=== PATIENT | female | born 1955 | race Caucasian/White ===

== ENCOUNTER 2019-08-28 07:31 | Observation (INO) | payer BC ==
[2019-08-22 12:22] LABS: BASOPHILS # (AUTO) 0.1 X10'3 (0-0.2); BASOPHILS % (AUTO) 1.2 % (0-1); EOSINOPHILS # (AUTO) 0.2 X10'3 (0-0.9); EOSINOPHILS % (AUTO) 1.6 % (0-6); LYMPHOCYTES # (AUTO) 3.6 X10'3 (1.1-4.8); LYMPHOCYTES % (AUTO) 35.1 % (21-51); MEAN CORPUSCULAR HEMOGLOBIN 24.5 PG (27.0-31.0); MEAN CORPUSCULAR HGB CONC 32.4 g/dL (33.0-36.5); MEAN CORPUSCULAR VOLUME 75.7 FL (78-98); MEAN PLATELET VOLUME 9.5 FL (7.4-10.4); MONOCYTES # (AUTO) 0.8 X10'3 (0-0.9); MONOCYTES % (AUTO) 7.8 % (2-12); NEUTROPHILS # (AUTO) 5.5 X10'3 (1.8-7.7); NEUTROPHILS % (AUTO) 54.3 % (42-75); PRE OP HEMATOCRIT 33.7 % (35.0-45.0); PRE OP PLATELET COUNT 252 X10'3 (140-440); RED BLOOD COUNT 4.45 X10'6 (4.20-5.60); RED CELL DISTRIBUTION WIDTH 15.2 % (11.5-14.5)
[2019-08-22 12:24] LABS: PRE OP HEMOGLOBIN 10.9 g/dL (12.0-16.0)
[2019-08-22 12:24] LABS: CLARITY,URINE CLEAR (Clear); COLOR,URINE YELLOW (Yellow); GLUCOSE, URINE NEGATIVE (Neg); KETONES,URINE NEGATIVE (Neg); LEUKOCYTE ESTERASE ,URINE TRACE (Neg); NITRITES, URINE NEGATIVE (Neg); OCCULT BLOOD,URINE NEGATIVE (Neg); PROTEIN,URINE NEGATIVE (Neg); UROBILINOGEN,URINE 0.2 E.U/dL (0.2-1.0)
[2019-08-22 12:26] LABS: UA COLLECTION TYPE NON-SPECIFIED
[2019-08-22 12:29] LABS: BACTERIA,URINE NONE SEEN /HPF (Neg); MUCUS STRANDS FEW /LPF (Neg); RBC,URINE NONE SEEN /HPF (0-2); SQUAMOUS EPITHELIAL CELL,UR FEW /LPF (FEW); WBC,URINE NONE SEEN /HPF (0-4)
[2019-08-22 12:32] LABS: PRE OP PROTIME 9.9 SECONDS (9.0-12.0)
[2019-08-22 12:41] LABS: ALBUMIN 3.6 G/DL (3.4-5.0); ALBUMIN/GLOBULIN RATIO 1.2 (1.1-1.5); ALKALINE PHOSPHATASE 94 IU/L (46-116); BLOOD UREA NITROGEN 21 MG/DL (7-18); BUN/CREATININE RATIO 17.2 (6.6-38.0); CHLORIDE 104 MMOL/L (99-107); CREATININE 1.22 MG/DL (0.40-0.90); PRE OP ALT 22 U/L (30-65); PRE OP ANION GAP 13 (8-16); PRE OP AST 12 U/L (10-37); PRE OP BILIRUB, TOTAL 0.2 MG/DL (0.0-1.0); PRE OP GLUCOSE 151 MG/DL (70-104); PRE OP POTASSIUM 4.5 MMOL/L (3.4-5.1); PRE OP SODIUM 140 MMOL/L (135-145); TOTAL CARBON DIOXIDE 22.9 MMOL/L (24-32); TOTAL PROTEIN 6.7 G/DL (6.4-8.2); eGFR 44 ML/MIN
[2019-08-28] VITALS (18 sets, daily range): BP systolic 139–177; BP diastolic 73–100
[~2019-08-28] VITALS: Ht 162.6 cm; Wt 84.9 kg
[~2019-08-28 07:31] MED LIST: ASCO500C15 PO; BUPIVAcaine/PF 2.5 mg/ml (0.25%) 30ml vial ONE; DOCUMENT DATE & TIME OF BETA-BLOCKER PO ONE; K2 PO; LABE100T5 PO; LACT1CAP65 PO; LEVO75TA PO; MAGN400C PO; METF500T PO; POTA-82 PO; QUIN10TA16 PO; VITA-268 PO; ceFAZolin 1000mg inj ONE; clindamycin-Cleocin 900mg/D5W 50 ML IV ONE; famotidine 20mg tablet PO ONE; ringers solution, lacted 1,000 ML IV SCH
[2019-08-28] MEDS ORDERED: ringers solution, lacted 1,000 ML IV SCH (08:21)
[2019-08-28] MEDS ORDERED: morphine 2 MG/ML inj. syringe IV PRN (08:25)
[2019-08-28] MEDS ORDERED: ondansetron/PF 4mg/2ml inj IV PRN (08:25)
[2019-08-28] MEDS ORDERED: meperidine/PF 25mg/ml syringe IV PRN ×2 (08:25)
[2019-08-28] MEDS ORDERED: proCHLORperazine 10 MG/2 ml inj IV PRN (08:25)
[2019-08-28] MEDS ORDERED: insulin regular, human U-100 3ml vial - multi-dose SQ ONE (08:55)
[2019-08-28] MEDS ORDERED: midazolam 2 mg/2 ml injection ONE (09:54)
[2019-08-28] MEDS ORDERED: fentaNYL /PF 50mcg/ml 5ml ampule ONE (09:54)
[2019-08-28] MEDS ORDERED: clindamycin phosphate 150mg/ml inj. ONE (10:02)
[2019-08-28] MEDS ORDERED: gentamicin 40 MG/1 ML inj ONE (10:02)
[2019-08-28] MEDS ORDERED: sevoflurane 250ml liquid IH ONE (10:22)
[2019-08-28] MEDS ORDERED: glycopyrrolate 0.2mg/ml inj ONE (10:22)
[2019-08-28] MEDS ORDERED: neostigmine methylsulfate 1 MG/ML 10ml vial ONE (10:22)
[2019-08-28] MEDS ORDERED: dexamethasone sod phosphate 10mg/ml inj ONE (10:22)
[2019-08-28] MEDS ORDERED: ceFAZolin 1000mg inj ONE (10:24)
[2019-08-28] MEDS ORDERED: ondansetron/PF 4mg/2ml inj ONE (10:34)
[2019-08-28] MEDS ORDERED: acetaminophen 1,000mg/100ml IV 100 ML IV ONE (10:47)
[2019-08-28] MEDS ORDERED: LIDOcaine 2% (20mg/ml) 5ml vial ONE (10:48)
[2019-08-28] MEDS ORDERED: propofol inj 20 ML IV ONE (10:48)
[2019-08-28] MEDS ORDERED: rocuronium 10mg/ml inj IV ONE (10:49)
--- NOTE | 2019-08-28 12:03 | NUR ---
Received from OR via [facility] , accompanied by Anesthesiologist CHRISTAL and report given by Anesthesiolgist. PATIENT WITH 5 ABDOMINAL BANDAIDS PRESENT AND CDI. VSS. 10L MASK ON WITH 100% SATURATIONS. 20G PIV IN LEFT UE MARCELLA OLIVERA AT 100. DENIES PAIN AT THIS TIME. Addendum: 08/28/19 at 1218 by Riley Walker RN, RN Amended: Links added.
[2019-08-28] MEDS: labetalol 20mg/4ml (5mg/ml) syringe IV PRN ×2 (12:25→13:08)
[2019-08-28] MEDS: meperidine/PF 25mg/ml syringe IV PRN ×2 (12:37→12:55)
[2019-08-28] MEDS: morphine 4 MG/ML inj SYRINge IV PRN ×2 (12:43→13:11)
--- NOTE | 2019-08-28 13:36 | NUR ---
ALL CRITERIA FOR DC TO THE FLOOR HAS BEEN ACHIEVED. 2 RAILS UP. BED LOW, CALL LIGHT PRESENT. GAVE REPORT TO RODRIGO VELAZQUEZ . PAIN AT A TOLERABLE LEVEL AT THIS TIME. DRESSINGS CDI. CARE TURNED OVER TO RN. PASSIVELY TRANSFERED PATIENT TO BED FROM [facility] WITH SLIDER AND 2 PERSON ASSIST. PATIENT C.O. MORE ABDOMEN PAIN UPON TRANSFER OVER TO BED. RN PRESENT TO ACCEPT CARE AND ASSIST WITH TRANSFER. Addendum: 08/28/19 at 1344 by Riley Green - RODRIGO WALLACE Amended: Links added.
--- NOTE | 2019-08-28 13:48 | NUR ---
Patient in room . I have received report from Riley WALLACE and had the opportunity to ask questions and assume patient care.
[2019-08-28] MEDS: potassium CL 20mEq in D5-1/2NS 1,000 ML IV SCH ×2 (14:37→20:14)
[2019-08-28] MEDS: HYDROcodone/acetaminophen 10/325mg tab PO PRN ×2 (14:42→23:22)
[2019-08-28] MEDS: ondansetron/PF 4mg/2ml inj IV PRN (14:45)
--- NOTE | 2019-08-28 17:15 | NUR ---
patient c/o pain. onl;y norco prescribed. call made to Dr benjamin who is in surgery. OR charge nurse emño stated she will contact him as soon as she can.
--- NOTE | 2019-08-28 17:21 | NUR ---
OR called to give order for dilaudid.
[2019-08-28] MEDS: HYDROmorphone 1 mg/ml syringe IV PRN (17:31)
[2019-08-28] MEDS ORDERED: vancomycin/NS 1 GM ADD-VANTAGE 250 ML IV SCH (18:00)
--- NOTE | 2019-08-28 18:30 | NUR ---
Dr Alanis into see patient, daughter present. order for zofran given for nausea not relieved by Zofran. Report given to Ben WALLACE
[2019-08-28] MEDS: metoclopramide 5 mg/ml inj IV PRN (18:41)
[2019-08-28] MEDS: labetalol 100mg tablet PO SCH (20:21)
[2019-08-28] MEDS: metFORMIN 500mg tablet PO SCH (20:22)
[2019-08-29] VITALS: BP 117/64
[2019-08-29] MEDS: potassium CL 20mEq in D5-1/2NS 1,000 ML IV SCH ×2 (00:38→12:14)
[2019-08-29] MEDS: ondansetron/PF 4mg/2ml inj IV PRN (04:42)
--- NOTE | 2019-08-29 05:12 | NUR ---
pt ambulated 300'
[2019-08-29 05:21] LABS: BASOPHILS % (AUTO) 0.2 % (0-1); EOSINOPHILS % (AUTO) 0 % (0-6); HEMATOCRIT 29.4 % (35.0-45.0); HEMOGLOBIN 9.4 g/dl (12.0-16.0); LYMPHOCYTES # (AUTO) 1.5 X10'3 (1.1-4.8); LYMPHOCYTES % (AUTO) 8.7 % (21-51); MEAN CORPUSCULAR HEMOGLOBIN 24.8 PG (27.0-31.0); MEAN CORPUSCULAR HGB CONC 32.1 g/dL (33.0-36.5); MEAN CORPUSCULAR VOLUME 77.3 FL (78-98); MEAN PLATELET VOLUME 9.3 FL (7.4-10.4); MONOCYTES # (AUTO) 1.3 X10'3 (0-0.9); MONOCYTES % (AUTO) 7.4 % (2-12); NEUTROPHILS # (AUTO) 14.2 X10'3 (1.8-7.7); NEUTROPHILS % (AUTO) 83.7 % (42-75); PLATELET COUNT 220 X10'3 (140-440); RED BLOOD COUNT 3.81 X10'6 (4.20-5.60); RED CELL DISTRIBUTION WIDTH 15.2 % (11.5-14.5)
[2019-08-29 05:22] LABS: ALBUMIN 2.9 G/DL (3.4-5.0); ANION GAP 9 (8-16); BLOOD UREA NITROGEN 24 MG/DL (7-18); BUN/CREATININE RATIO 14.8 (6.6-38.0); CALCIUM 7.8 MG/DL (8.5-10.1); CHLORIDE 103 MMOL/L (99-107); CREATININE 1.62 MG/DL (0.40-0.90); GLUCOSE 305 MG/DL (70-104); POTASSIUM 5.5 MMOL/L (3.5-5.1); SODIUM 134 MMOL/L (135-145); eGFR 32 ML/MIN
--- NOTE | 2019-08-29 06:59 | NUR ---
Patient in room [facility]. I have received report from Ben WALLACE and had the opportunity to ask questions and assume patient care.
[2019-08-29 07:00] VITALS: BP 117/56
--- NOTE | 2019-08-29 07:06 | NUR ---
Patient in room [facility]. I have received report from Kamryn and had the opportunity to ask questions and assume patient care.
[2019-08-29] MEDS: lactobacillus rhamnosus 10,000 MMU CELLS/CAPSULE PO SCH (07:33)
[2019-08-29] MEDS: lisinopril 20mg tablet PO SCH (07:35)
[2019-08-29] MEDS: ascorbic acid 500mg tablet PO SCH (07:37)
[2019-08-29] MEDS: metFORMIN 500mg tablet PO SCH (07:37)
[2019-08-29] MEDS: levoTHYROXINE 75mcg tablet PO SCH (07:39)
[2019-08-29] MEDS: vitamin B comp w/Vit. C tab 1 TAB TABLET PO SCH (08:00)
[2019-08-29] MEDS ORDERED: [UNRECOGNIZED DRUG - MIXTURE] PO SCH (08:00)
[2019-08-29] MEDS ORDERED: levoTHYROXINE 75mcg tablet PO SCH (08:00)
[2019-08-29] MEDS ORDERED: POTASSIUM CHLORIDE 99 MG PO SCH (08:00)
[2019-08-29] MEDS: HYDROmorphone 1 mg/ml syringe IV PRN ×2 (09:29→14:47)
[2019-08-29 11:00] VITALS: BP 117/56
[2019-08-29] MEDS: HYDROcodone/acetaminophen 10/325mg tab PO PRN ×2 (11:49→20:41)
--- NOTE | 2019-08-29 12:00 | NUR ---
patient k 5.5 and blood sugar 259 fluids stopped . call made to Dr benjamin, awaiting orders.
[2019-08-29] MEDS ORDERED: dextrose ORAL solution 15 GM/59 ML bottle PO PRN ×2 (14:10)
[2019-08-29] MEDS ORDERED: glucagon, human recombinant 1mg kit SUBCUT PRN (14:10)
[2019-08-29] MEDS ORDERED: MESSAGE TO PHARMACY PO ONE (14:10)
[2019-08-29] MEDS ORDERED: dextrose 50%-water 50ml dispensing syringe IV PRN ×2 (14:10)
[2019-08-29] MEDS: metoclopramide 5 mg/ml inj IV PRN (15:03)
--- NOTE | 2019-08-29 15:12 | NUR ---
Pt with A1c 8.0% seen at bedside with family present for written and verbal DM education. Pt states she takes her DM meds per rx however hasn't been seeing an MD or checking her BG levels. Per pt and family member patient's A1c is usually well controlled and in the 5.0 range. Pt believes current increase in A1c is r/t recent increased intake of sugary items such as desserts. RD encouraged pt to monitor BG levels more frequently and practice consistent carb intake to prevent spikes in blood sugar. Pt verbalized understanding. Pt s/p hernia repair with mesh, reports a low appetite since surgery. Pt currently on a clear liquid diet documented with 50% PO intake x [address] encouraged increased protein intake with diet advancement given recent surgery. Pt denies food allergies or difficulty chewing/swallowing. RD contact information provided. Will remain available. Addendum: 08/29/19 at [address] Amended: Links added.
--- NOTE | 2019-08-29 15:42 | NUR ---
Student Medication Administration: For this medication-pass time frame, all medication were reviewed, dispensed, administered and documented per hospital policy by matt Turner.
--- NOTE | 2019-08-29 15:42 | NUR ---
Student documentation: I have reviewed and agree with all interventions, assessments performed and documented by Yue, nursing project coordinator.
--- NOTE | 2019-08-29 15:46 | NUR ---
Student documentation: I have reviewed and agree with all interventions, assessments performed and documented by Nina, advanced nursing professor.
--- NOTE | 2019-08-29 15:47 | NUR ---
Student Medication Administration: For this medication-pass time frame, all medication were reviewed, dispensed, administered and documented per hospital policy by Nina nursing scheduler.
[2019-08-29 17:13] VITALS: BP 112/60
--- NOTE | 2019-08-29 17:49 | NUR ---
Problems reprioritized. Patient report given, questions answered & plan of care reviewed with Kamryn WALLACE.
[2019-08-29 18:00] VITALS: BP 131/61
--- NOTE | 2019-08-29 18:14 | NUR ---
patient seen by Dr benjamin, diet advanced as tolerated. Dr benjamin aware that patient hasnt passed gas yet. Ambulating in hallway with daughter. Dilaudid , norco and reglan given throughout day for pain and nausea. Bandaides CDI.
--- NOTE | 2019-08-29 18:42 | NUR ---
Problems reprioritized. Patient report given, questions answered & plan of care reviewed with prudence RN.
[2019-08-29] MEDS: insulin Lispro (HumaLOG) vial - multi-dose SQ SCH (19:29)
[2019-08-29] MEDS: labetalol 100mg tablet PO SCH (20:42)
[2019-08-29] MEDS ORDERED: insulin glargine (Lantus) pen - multi-dose SQ SCH (21:00)
[2019-08-29] MEDS ORDERED: magnesium oxide 400mg tablet PO SCH (21:00)
[2019-08-30 05:10] LABS: BASOPHILS % (AUTO) 0.4 % (0-1); EOSINOPHILS # (AUTO) 0.2 X10'3 (0-0.9); EOSINOPHILS % (AUTO) 1.8 % (0-6); HEMATOCRIT 28.6 % (35.0-45.0); HEMOGLOBIN 9.4 g/dl (12.0-16.0); LYMPHOCYTES # (AUTO) 2.5 X10'3 (1.1-4.8); LYMPHOCYTES % (AUTO) 24.4 % (21-51); MEAN CORPUSCULAR HEMOGLOBIN 24.9 PG (27.0-31.0); MEAN CORPUSCULAR VOLUME 75.6 FL (78-98); MEAN PLATELET VOLUME 8.8 FL (7.4-10.4); MONOCYTES # (AUTO) 0.9 X10'3 (0-0.9); MONOCYTES % (AUTO) 8.8 % (2-12); NEUTROPHILS # (AUTO) 6.7 X10'3 (1.8-7.7); NEUTROPHILS % (AUTO) 64.6 % (42-75); PLATELET COUNT 195 X10'3 (140-440); RED BLOOD COUNT 3.78 X10'6 (4.20-5.60); RED CELL DISTRIBUTION WIDTH 15.3 % (11.5-14.5); WHITE BLOOD COUNT 10.3 X10'3 (4.5-11.0)
[2019-08-30 05:12] LABS: ALBUMIN 2.8 G/DL (3.4-5.0); ANION GAP 11 (8-16); BLOOD UREA NITROGEN 19 MG/DL (7-18); BUN/CREATININE RATIO 15.3 (6.6-38.0); CALCIUM 7.9 MG/DL (8.5-10.1); CHLORIDE 100 MMOL/L (99-107); CREATININE 1.24 MG/DL (0.40-0.90); GLUCOSE 177 MG/DL (70-104); POTASSIUM 4.6 MMOL/L (3.5-5.1); SODIUM 134 MMOL/L (135-145); TOTAL CARBON DIOXIDE 22.7 MMOL/L (24-32); eGFR 43 ML/MIN
[2019-08-30] MEDS: HYDROmorphone 1 mg/ml syringe IV PRN (05:12)
--- NOTE | 2019-08-30 06:36 | NUR ---
Patient in room [facility]. I have received report from RODRIGO Pantoja and had the opportunity to ask questions and assume patient care.
[2019-08-30 07:14] VITALS: BP 150/71
[2019-08-30] MEDS: vitamin B comp w/Vit. C tab 1 TAB TABLET PO SCH (07:52)
[2019-08-30] MEDS: lisinopril 20mg tablet PO SCH (07:52)
[2019-08-30] MEDS: lactobacillus rhamnosus 10,000 MMU CELLS/CAPSULE PO SCH (07:52)
[2019-08-30] MEDS: ascorbic acid 500mg tablet PO SCH (07:53)
[2019-08-30] MEDS: levoTHYROXINE 75mcg tablet PO SCH (07:53)
[2019-08-30] MEDS: insulin Lispro (HumaLOG) vial - multi-dose SQ SCH (08:38)
[2019-08-30] MEDS: HYDROcodone/acetaminophen 10/325mg tab PO PRN (10:22)
[2019-08-30 11:00] VITALS: BP 158/70
[2019-08-30] MEDS ORDERED: HYDR-4353 PO (12:30)
--- NOTE | 2019-08-30 14:51 | NUR ---
Pt discharged to home with all belongings, in private vehicle. Discharge instructions and medications reviewed. New prescription for pain medication provided to patient, with instructions to take to pharmacy of choice to fill. Pt instructed to follow up with Dr Alanis in 2 weeks, and to monitor for signs/symptoms of infection. IV DC'd, cannula intact. Pt escorted to front lobby via wheelchair.
== END 2019-08-30 14:19 | disposition home or self-care (01) ==
LOC: PAS 07:31 → SUR 3N 12:14
PROVIDERS: ADMIT Surgery; ATTEND Surgery
DX: Z03.818 Encounter for observation for suspected exposure to other biological agents ruled out (principal); K43.2 Incisional hernia without obstruction or gangrene
CPT/HCPCS: 36415; 49654; 80048; 80053; 81001; 82948; 83036; 84443; 85025; 85610; 85730; 87081; 87088; 93005; 96365; 96372; 96375; 96376; C1758; C1781; G0378; J0131; J0690; J1100; J1170; J1580; J1815; J2001; J2175; J2250; J2270; J2405; J2704; J2710; J2765; J3010; J3370; J3480; J3490; J7120; U0003; A4215; A4618; A7000

== ENCOUNTER 2019-09-03 19:43 | Emergency (ER) | payer BC ==
[~2019-09-03] VITALS: Ht 162.6 cm; Wt 81.4 kg
[~2019-09-03 19:43] MED LIST changes: -BUPIVAcaine/PF 2.5 mg/ml (0.25%) 30ml vial ONE; -DOCUMENT DATE & TIME OF BETA-BLOCKER PO ONE; +HYDR-4353 PO; -ceFAZolin 1000mg inj ONE; -clindamycin-Cleocin 900mg/D5W 50 ML IV ONE; -famotidine 20mg tablet PO ONE; -ringers solution, lacted 1,000 ML IV SCH
[2019-09-03 20:14] LABS: BASOPHILS # (AUTO) 0.1 X10'3 (0-0.2); BASOPHILS % (AUTO) 1.2 % (0-1); EOSINOPHILS # (AUTO) 0.3 X10'3 (0-0.9); EOSINOPHILS % (AUTO) 2.6 % (0-6); HEMATOCRIT 35.3 % (35.0-45.0); HEMOGLOBIN 11.3 g/dl (12.0-16.0); LYMPHOCYTES % (AUTO) 25.7 % (21-51); MEAN CORPUSCULAR HEMOGLOBIN 24.2 PG (27.0-31.0); MEAN CORPUSCULAR HGB CONC 32.1 g/dL (33.0-36.5); MEAN CORPUSCULAR VOLUME 75.6 FL (78-98); MEAN PLATELET VOLUME 8.6 FL (7.4-10.4); MONOCYTES # (AUTO) 1.1 X10'3 (0-0.9); MONOCYTES % (AUTO) 9.5 % (2-12); NEUTROPHILS # (AUTO) 7.2 X10'3 (1.8-7.7); PLATELET COUNT 306 X10'3 (140-440); RED BLOOD COUNT 4.67 X10'6 (4.20-5.60); RED CELL DISTRIBUTION WIDTH 15.2 % (11.5-14.5); WHITE BLOOD COUNT 11.7 X10'3 (4.5-11.0)
[2019-09-03 20:21] LABS: ALANINE AMINOTRANSFERASE 18 U/L (12-78); ALBUMIN 3.4 G/DL (3.4-5.0); ALKALINE PHOSPHATASE 101 IU/L (46-116); ANION GAP 8 (8-16); ASPARTATE AMINO TRANSFERASE 13 U/L (10-37); BILIRUBIN,TOTAL 0.4 MG/DL (0.1-1.0); BLOOD UREA NITROGEN 14 MG/DL (7-18); BUN/CREATININE RATIO 10.5 (6.6-38.0); CALCIUM 8.7 MG/DL (8.5-10.1); CHLORIDE 96 MMOL/L (99-107); CREATININE 1.33 MG/DL (0.40-0.90); GLUCOSE 195 MG/DL (70-104); POTASSIUM 4.6 MMOL/L (3.5-5.1); SODIUM 130 MMOL/L (135-145); TOTAL CARBON DIOXIDE 25.7 MMOL/L (24-32); TOTAL PROTEIN 6.8 G/DL (6.4-8.2); eGFR 40 ML/MIN
--- NOTE | 2019-09-03 20:54 | NUR ---
pt states she is having moments off and on here where she is feeling palpitations in her chest. pt seems uncomfortable. HR at this time is regular.
[2019-09-03 22:19] LABS: D-DIMER 1.27 MG/L FEU (0-0.50)
[2019-09-03] MEDS ORDERED: HYDR-4353 PO (22:30)
[2019-09-03] MEDS ORDERED: labetalol 100mg tablet PO STA (23:22)
[2019-09-04 00:03] VITALS: BP 141/90
== END 2019-09-04 00:06 | disposition home or self-care (01) ==
LOC: ER 19:44
DX: I48.0 Paroxysmal atrial fibrillation (principal); R00.2 Palpitations; I10 Essential (primary) hypertension; E11.9 Type 2 diabetes mellitus without complications; E03.9 Hypothyroidism, unspecified; Z98.890 Other specified postprocedural states; Z72.89 Other problems related to lifestyle; Z88.0 Allergy status to penicillin; Z79.899 Other long term (current) drug therapy
CPT/HCPCS: 36415; 71045; 80053; 84484; 85025; 85379; 93005; 99285

== ENCOUNTER 2019-09-24 09:56 | Emergency (ER) | payer BC, MEDICARE ==
[~2019-09-24] VITALS: Ht 162.6 cm; Wt 82.1 kg
[2019-09-24] MEDS ORDERED: normal saline 1000ML IV soln IVB ONE (10:25)
[2019-09-24] MEDS ORDERED: morphine 4 MG/ML inj SYRINge IV PRN (10:25)
[2019-09-24] MEDS ORDERED: ondansetron/PF 4mg/2ml inj IV ONE (10:25)
[2019-09-24 10:48] LABS: BASOPHILS # (AUTO) 0.1 X10'3 (0-0.2); BASOPHILS % (AUTO) 0.7 % (0-1); EOSINOPHILS # (AUTO) 0.4 X10'3 (0-0.9); HEMATOCRIT 33.6 % (35.0-45.0); HEMOGLOBIN 10.9 g/dl (12.0-16.0); LYMPHOCYTES % (AUTO) 33.5 % (21-51); MEAN CORPUSCULAR HEMOGLOBIN 24.4 PG (27.0-31.0); MEAN CORPUSCULAR HGB CONC 32.4 g/dL (33.0-36.5); MEAN CORPUSCULAR VOLUME 75.3 FL (78-98); MEAN PLATELET VOLUME 8.7 FL (7.4-10.4); MONOCYTES # (AUTO) 0.7 X10'3 (0-0.9); MONOCYTES % (AUTO) 8.3 % (2-12); NEUTROPHILS # (AUTO) 4.9 X10'3 (1.8-7.7); NEUTROPHILS % (AUTO) 53.5 % (42-75); PLATELET COUNT 264 X10'3 (140-440); RED BLOOD COUNT 4.46 X10'6 (4.20-5.60); RED CELL DISTRIBUTION WIDTH 15.4 % (11.5-14.5); WHITE BLOOD COUNT 9.1 X10'3 (4.5-11.0)
[2019-09-24 11:01] LABS: ALANINE AMINOTRANSFERASE 22 U/L (12-78); ALBUMIN 3.5 G/DL (3.4-5.0); ALBUMIN/GLOBULIN RATIO 1.1 (1.1-1.5); ALKALINE PHOSPHATASE 93 IU/L (46-116); ANION GAP 12 (8-16); ASPARTATE AMINO TRANSFERASE 14 U/L (10-37); BILIRUBIN,TOTAL 0.4 MG/DL (0.1-1.0); BLOOD UREA NITROGEN 20 MG/DL (7-18); BUN/CREATININE RATIO 17.2 (6.6-38.0); CALCIUM 8.8 MG/DL (8.5-10.1); CHLORIDE 102 MMOL/L (99-107); CREATININE 1.16 MG/DL (0.40-0.90); GLUCOSE 198 MG/DL (70-104); LIPASE 241 U/L (73-393); POTASSIUM 4.5 MMOL/L (3.5-5.1); SODIUM 136 MMOL/L (135-145); TOTAL CARBON DIOXIDE 21.6 MMOL/L (24-32); TOTAL PROTEIN 6.6 G/DL (6.4-8.2); eGFR 47 ML/MIN
[2019-09-24 12:02] LABS: CLARITY,URINE CLEAR (Clear); COLOR,URINE YELLOW (Yellow); GLUCOSE, URINE NEGATIVE (Neg); KETONES,URINE NEGATIVE (Neg); LEUKOCYTE ESTERASE ,URINE TRACE (Neg); NITRITES, URINE NEGATIVE (Neg); OCCULT BLOOD,URINE NEGATIVE (Neg); PH,URINE 5.5 (4.8-8.0); PROTEIN,URINE NEGATIVE (Neg); UROBILINOGEN,URINE 0.2 E.U/dL (0.2-1.0)
[2019-09-24 12:09] LABS: UA COLLECTION TYPE CLN CATCH MIDSTREAM
--- NOTE | 2019-09-24 12:09 | NUR ---
PT STAES FEELINGS NAUSEOUS, PROVIDER MADE AWARE.
[2019-09-24 12:10] LABS: RBC,URINE NONE SEEN /HPF (0-2); WBC,URINE 0-4 /HPF (0-4)
[2019-09-24] MEDS ORDERED: proCHLORperazine 10 MG/2 ml inj IV ONE (12:10)
[2019-09-24 12:11] LABS: BACTERIA,URINE FEW /HPF (Neg); SQUAMOUS EPITHELIAL CELL,UR FEW /LPF (FEW)
[2019-09-24] MEDS ORDERED: HYDROcodone/acetaminophen 5mg/325mg tablet PO ONE (13:40)
[2019-09-24] MEDS ORDERED: DOCU-148 PO (13:42)
[2019-09-24] MEDS ORDERED: HYDR-4383 PO (13:42)
[2019-09-24] MEDS ORDERED: ONDA4TAB6 PO (13:42)
[2019-09-24 13:46] VITALS: BP 136/71
== END 2019-09-24 13:52 | disposition home or self-care (01) ==
LOC: ER 09:56
DX: L02.211 Cutaneous abscess of abdominal wall (principal); I48.91 Unspecified atrial fibrillation; I10 Essential (primary) hypertension; E11.9 Type 2 diabetes mellitus without complications; E03.9 Hypothyroidism, unspecified; Z98.890 Other specified postprocedural states; Z90.49 Acquired absence of other specified parts of digestive tract; Z72.89 Other problems related to lifestyle; Z88.0 Allergy status to penicillin; Z79.899 Other long term (current) drug therapy; Z79.84 Long term (current) use of oral hypoglycemic drugs
CPT/HCPCS: 36415; 74176; 80053; 81001; 83605; 83690; 84145; 85025; 87088; 96374; 96375; 99285; J0780; J2270; J2405; J7030

== ENCOUNTER 2019-09-29 11:15 | Day surgery (SDC) | payer BC, MEDICARE ==
[~2019-09-29] VITALS: Ht 162.6 cm; Wt 82.6 kg
[~2019-09-29 11:15] MED LIST changes: +DOCU-148 PO; +HYDR-4383 PO; +ONDA4TAB6 PO
[2019-09-29 11:30] VITALS: BP 149/89
[2019-09-29 12:45] VITALS: BP 147/78
[2019-09-29 13:00] VITALS: BP 149/79
[2019-09-29 13:15] VITALS: BP 172/91
== END 2019-09-29 13:25 | disposition home or self-care (01) ==
LOC: SSTAY O 11:15
PROVIDERS: ATTEND Radiology Diagnostic Radiology
DX: L76.34 Postprocedural seroma of skin and subcutaneous tissue following other procedure (principal); Z88.0 Allergy status to penicillin; Z79.899 Other long term (current) drug therapy; Y83.8 Other surgical procedures as the cause of abnormal reaction of the patient, or of later complication, without mention of misadventure at the time of the procedure; Y92.89 Other specified places as the place of occurrence of the external cause
CPT/HCPCS: 10030; 87070

== ENCOUNTER 2019-12-02 00:26 | Emergency (ER) | payer BC, MEDICARE ==
[~2019-12-02] VITALS: Ht 162.6 cm; Wt 86.4 kg
[~2019-12-02 00:26] MED LIST changes: -ASCO500C15 PO; +ASCO500C18 PO; -DOCU-148 PO; -HYDR-4353 PO; -HYDR-4383 PO; -ONDA4TAB6 PO; -QUIN10TA16 PO
[2019-12-02 01:32] LABS: BASOPHILS % (AUTO) 0.3 % (0-1); EOSINOPHILS # (AUTO) 0.1 X10'3 (0-0.9); EOSINOPHILS % (AUTO) 0.8 % (0-6); HEMATOCRIT 27.5 % (35.0-45.0); LYMPHOCYTES # (AUTO) 3.2 X10'3 (1.1-4.8); LYMPHOCYTES % (AUTO) 22.6 % (21-51); MEAN CORPUSCULAR HGB CONC 32.8 g/dL (33.0-36.5); MEAN CORPUSCULAR VOLUME 73.1 FL (78-98); MEAN PLATELET VOLUME 7.7 FL (7.4-10.4); MONOCYTES # (AUTO) 1.1 X10'3 (0-0.9); MONOCYTES % (AUTO) 7.9 % (2-12); NEUTROPHILS # (AUTO) 9.8 X10'3 (1.8-7.7); NEUTROPHILS % (AUTO) 68.4 % (42-75); PLATELET COUNT 485 X10'3 (140-440); RED BLOOD COUNT 3.77 X10'6 (4.20-5.60); RED CELL DISTRIBUTION WIDTH 16.2 % (11.5-14.5); WHITE BLOOD COUNT 14.4 X10'3 (4.5-11.0)
[2019-12-02 01:46] LABS: ANION GAP 14 (8-16); BILIRUBIN,TOTAL 0.5 MG/DL (0.1-1.0); BLOOD UREA NITROGEN 21 MG/DL (7-18); BUN/CREATININE RATIO 15.4 (6.6-38.0); CALCIUM 8.5 MG/DL (8.5-10.1); CHLORIDE 97 MMOL/L (99-107); CREATININE 1.36 MG/DL (0.40-0.90); GLUCOSE 257 MG/DL (70-104); POTASSIUM 3.4 MMOL/L (3.5-5.1); SODIUM 131 MMOL/L (135-145); TOTAL CARBON DIOXIDE 19.9 MMOL/L (24-32); TOTAL PROTEIN 5.9 G/DL (6.4-8.2); eGFR 39 ML/MIN
[2019-12-02 01:47] LABS: ALANINE AMINOTRANSFERASE 17 U/L (12-78); ALBUMIN 2.5 G/DL (3.4-5.0); ALBUMIN/GLOBULIN RATIO 0.7 (1.1-1.5); ALKALINE PHOSPHATASE 128 IU/L (46-116); ASPARTATE AMINO TRANSFERASE 14 U/L (10-37)
[2019-12-02] MEDS ORDERED: LABE100T5 PO ×2 (01:58→06:19)
[2019-12-02] MEDS ORDERED: ASPI-1265 PO (02:00)
[2019-12-02] MEDS ORDERED: normal saline 1000ML IV soln IVB ONE (02:15)
--- NOTE | 2019-12-02 02:55 | NUR ---
PT ALERTED THAT 'HEART FELT FUNNY' REATTACHED TO MONITOR, HR ELEVATED IN 130'S-160'S. MD NOTIFIED. WILL CONTINUE TO MONITOR
[2019-12-02] MEDS ORDERED: diltiazem 5mg/ml 5ml inj. IV ONE (03:05)
[2019-12-02] MEDS ORDERED: normal saline 1000ml 1,000 ML IV ONE (03:40)
[2019-12-02] MEDS ORDERED: diltiazem 30mg tablet PO ONE (04:05)
[2019-12-02 05:58] VITALS: BP 101/56
== END 2019-12-02 06:55 | disposition home or self-care (01) ==
LOC: ER 00:27
DX: I48.0 Paroxysmal atrial fibrillation (principal); I10 Essential (primary) hypertension; K21.9 Gastro-esophageal reflux disease without esophagitis; E11.9 Type 2 diabetes mellitus without complications; E03.9 Hypothyroidism, unspecified; Z90.49 Acquired absence of other specified parts of digestive tract; Z98.890 Other specified postprocedural states; Z72.89 Other problems related to lifestyle; Z88.0 Allergy status to penicillin; Z79.82 Long term (current) use of aspirin; Z79.899 Other long term (current) drug therapy
CPT/HCPCS: 36415; 71045; 80053; 83880; 84484; 85025; 93005; 96361; 96374; 99285; J7030; J3490

== ENCOUNTER 2021-01-28 12:47 | Emergency (ER) | payer BC ==
[~2021-01-28] VITALS: Ht 162.6 cm; Wt 90.9 kg
[~2021-01-28 12:47] MED LIST changes: +ASPI-1265 PO
[2021-01-28 13:02] VITALS: BP 162/100
[2021-01-28 13:30] LABS: BASOPHILS # (AUTO) 0.1 X10'3 (0-0.2); BASOPHILS % (AUTO) 1.2 % (0-1); EOSINOPHILS # (AUTO) 0.2 X10'3 (0-0.9); HEMATOCRIT 42.4 % (35.0-45.0); HEMOGLOBIN 14.2 g/dl (12.0-16.0); LYMPHOCYTES # (AUTO) 3.3 X10'3 (1.1-4.8); LYMPHOCYTES % (AUTO) 30.9 % (21-51); MEAN CORPUSCULAR HEMOGLOBIN 29.2 PG (27.0-31.0); MEAN CORPUSCULAR HGB CONC 33.6 g/dL (33.0-36.5); MEAN CORPUSCULAR VOLUME 86.9 FL (78-98); MEAN PLATELET VOLUME 8.6 FL (7.4-10.4); MONOCYTES # (AUTO) 0.9 X10'3 (0-0.9); MONOCYTES % (AUTO) 8.7 % (2-12); NEUTROPHILS # (AUTO) 6.1 X10'3 (1.8-7.7); NEUTROPHILS % (AUTO) 57.2 % (42-75); PLATELET COUNT 246 X10'3 (140-440); RED BLOOD COUNT 4.88 X10'6 (4.20-5.60); RED CELL DISTRIBUTION WIDTH 13.5 % (11.5-14.5); WHITE BLOOD COUNT 10.6 X10'3 (4.5-11.0)
[2021-01-28 13:47] LABS: ALANINE AMINOTRANSFERASE 38 U/L (12-78); ALBUMIN 3.8 G/DL (3.4-5.0); ALBUMIN/GLOBULIN RATIO 1.2 (1.1-1.5); ALKALINE PHOSPHATASE 106 IU/L (46-116); ANION GAP 16 (8-16); ASPARTATE AMINO TRANSFERASE 16 U/L (10-37); BILIRUBIN,TOTAL 0.3 MG/DL (0.1-1.0); BLOOD UREA NITROGEN 20 MG/DL (7-18); BUN/CREATININE RATIO 16.1 (6.6-38.0); CALCIUM 8.4 MG/DL (8.5-10.1); CHLORIDE 107 MMOL/L (99-107); CREATININE 1.24 MG/DL (0.40-0.90); GLUCOSE 158 MG/DL (70-104); POTASSIUM 4.3 MMOL/L (3.5-5.1); SODIUM 143 MMOL/L (135-145); TOTAL CARBON DIOXIDE 20.3 MMOL/L (24-32); eGFR 43 ML/MIN
[2021-01-28 13:57] LABS: MAGNESIUM 2.2 MG/DL (1.5-2.4)
[2021-01-28 15:46] LABS: D-DIMER 0.46 MG/L FEU (0-0.50)
== END 2021-01-28 23:29 | disposition left against medical advice (07) ==
LOC: ER 12:48
DX: R00.2 Palpitations (principal); Z53.21 Procedure and treatment not carried out due to patient leaving prior to being seen by health care provider
CPT/HCPCS: 36415; 80053; 83735; 84443; 85025; 85379; 93005

== ENCOUNTER 2021-08-15 05:32 | Day surgery (SDC) | payer MEDICARE, BC ==
[2021-08-12 12:19] LABS: BASOPHILS # (AUTO) 0.1 X10'3 (0-0.2); BASOPHILS % (AUTO) 0.7 % (0-1); EOSINOPHILS # (AUTO) 0.2 X10'3 (0-0.9); EOSINOPHILS % (AUTO) 1.5 % (0-6); LYMPHOCYTES % (AUTO) 25.1 % (21-51); MEAN CORPUSCULAR HEMOGLOBIN 28.5 PG (27.0-31.0); MEAN CORPUSCULAR HGB CONC 33.3 g/dL (33.0-36.5); MEAN CORPUSCULAR VOLUME 85.5 FL (78-98); MEAN PLATELET VOLUME 9.4 FL (7.4-10.4); MONOCYTES # (AUTO) 0.9 X10'3 (0-0.9); MONOCYTES % (AUTO) 7.5 % (2-12); NEUTROPHILS # (AUTO) 7.7 X10'3 (1.8-7.7); NEUTROPHILS % (AUTO) 65.2 % (42-75); PRE OP HEMATOCRIT 43.4 % (35.0-45.0); PRE OP HEMOGLOBIN 14.5 g/dL (12.0-16.0); PRE OP PLATELET COUNT 243 X10'3 (140-440); RED BLOOD COUNT 5.08 X10'6 (4.20-5.60); RED CELL DISTRIBUTION WIDTH 13.7 % (11.5-14.5)
[2021-08-12 12:40] LABS: BLOOD UREA NITROGEN 18 MG/DL (7-18); BUN/CREATININE RATIO 11.9 (6.6-38.0); CALCIUM 9.1 MG/DL (8.5-10.1); CHLORIDE 99 MMOL/L (99-107); CREATININE 1.51 MG/DL (0.40-0.90); PRE OP ANION GAP 11 (8-16); PRE OP BILIRUB, TOTAL 0.4 MG/DL (0.0-1.0); PRE OP POTASSIUM 4.8 MMOL/L (3.4-5.1); PRE OP SODIUM 134 MMOL/L (135-145); TOTAL PROTEIN 7.3 G/DL (6.4-8.2); eGFR 34 ML/MIN
[2021-08-12 12:41] LABS: ALBUMIN/GLOBULIN RATIO 1.2 (1.1-1.5); ALKALINE PHOSPHATASE 126 IU/L (46-116); PRE OP ALT 26 U/L (30-65); PRE OP AST 18 U/L (10-37)
[2021-08-12 13:13] LABS: PRE OP GLUCOSE 271 MG/DL (70-104)
[~2021-08-15] VITALS: Ht 162.6 cm; Wt 95.0 kg
[2021-08-15] VITALS (12 sets, daily range): BP systolic 130–179; BP diastolic 76–94
[~2021-08-15 05:32] MED LIST changes: +ACET325T55 PO; +DOCUMENT DATE & TIME OF BETA-BLOCKER PO ONE; +FERR236T3 PO; +GLIM2TAB6 PO; -LACT1CAP65 PO; +MELA1TAB28 PO; -METF500T PO; +VOLTAREN GEL TD; +clindamycin-Cleocin 900mg/D5W 50 ML IV ONE; +famotidine 20mg tablet PO ONE; +ringers solution, lacted 1,000 ML IV SCH
[2021-08-15] MEDS ORDERED: BUPIVAcaine/PF 2.5 mg/ml (0.25%) 30ml vial ONE (06:41)
[2021-08-15] MEDS ORDERED: LIDOcaine 0.5% (5mg/ml) 50ml vial ONE (07:16)
[2021-08-15] MEDS ORDERED: labetalol 20mg/4ml (5mg/ml) syringe IV PRN (07:20)
[2021-08-15] MEDS ORDERED: ondansetron/PF 4mg/2ml inj IV PRN (07:20)
[2021-08-15] MEDS ORDERED: morphine 2 MG/ML inj. syringe IV PRN (07:20)
[2021-08-15] MEDS ORDERED: hydrALAZINE 20mg/ml inj. IV PRN (07:20)
[2021-08-15] MEDS ORDERED: ringers solution, lacted 1,000 ML IV SCH (07:20)
[2021-08-15] MEDS ORDERED: morphine 4 MG/ML inj SYRINge IV PRN (07:20)
[2021-08-15] MEDS ORDERED: fentaNYL/PF 50MCG/1 ML 2ML syringe IV PRN ×2 (07:20)
[2021-08-15] MEDS ORDERED: fentaNYL/PF 50MCG/1 ML 2ML syringe ONE (07:26)
[2021-08-15] MEDS ORDERED: triamcinolone acetonide 40mg/ml inj ONE (07:38)
[2021-08-15] MEDS ORDERED: MIDAZolam 1 MG/ML 5ML VIAL ONE (07:42)
--- NOTE | 2021-08-15 07:49 | NUR ---
Received from OR via [facility] , accompanied by Anesthesiologist DR SANCHEZ and report given by Anesthesiolgist. PT PRESENTS WITH 20G LEFT HAND, DRESSING ON RIGHT HAND CDI. Addendum: 08/15/21 at 0822 by Isabel Walker RN, RN Amended: Links added.
--- NOTE | 2021-08-15 08:00 | NUR ---
FROM OR ON [facility] WITH DR. SANCHEZ AT SIDE. INITIAL BP ELEVATED TREATED WITH LABETOLOL. NO PAIN, FINGERS HAVE BRISK CAP REFILLS. DSG CDI.
--- NOTE | 2021-08-15 09:29 | NUR ---
ALL DISCHARGE CRITERIA HAS BEEN MET. VSS, PAIN AT A TOLERABLE LEVEL, VOIDING AND ABLE TO SAFELY AMBULATE AND TRANSFER SELF. IV TAKEN OUT WITHOUT ANY COMPLICATIONS. ALL DISCHARGE INSTRUCTIONS COVERED WITH PATIENT AND ALL QUESTIONS ANSWERED. PATIENT TAKEN OUT VIA WHEELCHAIR TO PERSONAL VEHICLE WHERE FAMILY/FRIEND DROVE PATIENT HOME. Addendum: 08/15/21 at 0945 by Isabel Walker RN, RN Amended: Links added.
== END 2021-08-15 09:29 | disposition home or self-care (01) ==
LOC: PAS 05:32
PROVIDERS: ATTEND Orthopaedic Surgery Hand Surgery
DX: G56.01 Carpal tunnel syndrome, right upper limb (principal); M18.11 Unilateral primary osteoarthritis of first carpometacarpal joint, right hand; I48.91 Unspecified atrial fibrillation; M19.90 Unspecified osteoarthritis, unspecified site; E03.9 Hypothyroidism, unspecified; E11.22 Type 2 diabetes mellitus with diabetic chronic kidney disease; I12.9 Hypertensive chronic kidney disease with stage 1 through stage 4 chronic kidney disease, or unspecified chronic kidney disease; N18.30 Chronic kidney disease, stage 3 unspecified; E66.9 Obesity, unspecified; Z68.36 Body mass index [BMI] 36.0-36.9, adult; Z72.89 Other problems related to lifestyle; Z79.899 Other long term (current) drug therapy; Z88.0 Allergy status to penicillin; Z98.84 Bariatric surgery status; Z98.890 Other specified postprocedural states
CPT/HCPCS: 20600; 29848; 36415; 80053; 82948; 85025; 93005; J2250; J2405; J3010; J3301; J3490; J7030; J7120; Z7506; Z7512; A4215; A7000